=== PATIENT | male | born 1950 | race Caucasian/White ===

== ENCOUNTER → 2016-03-23 | Outpatient (CLI) | payer MEDICARE, OTHER ==
[2016-03-23 09:09] LABS: MEAN CORPUSCULAR HGB CONC 34.9 g/dL (31.0-37.0); MEAN PLATELET VOLUME 11.1 FL (6.0-9.5); PLATELET COUNT 153 10^3uL (150-450); WHITE BLOOD COUNT 6.38 10^3uL (4.0-11.0)
[2016-03-23 09:18] LABS: MEAN CORPUSCULAR HEMOGLOBIN 34.1 PG (26.0-34.0); MEAN CORPUSCULAR VOLUME 98 FL (80-100)
[2016-03-23 09:42] LABS: ALBUMIN 4.8 g/dL (3.4-5.0); ALKALINE PHOSPHATASE 70 U/L (38-126); ANION GAP 18.9 MEQ/L (3-15); BUN/CREATININE RATIO 20 (10-20); CALCULATED IONIZED CALCIUM 3.9 mg/dL (3.8-4.6); TOTAL PROTEIN 8.8 g/dL (6.4-8.5)
[2016-03-23 09:46] LABS: BILIRUBIN,URINE Negative (Negative); CLARITY,URINE Clear; COLOR,URINE Yellow; GLUCOSE, URINE (UA) Negative (Negative); LEUKOCYTE ESTERASE ,URINE Negative (Negative); UROBILINOGEN,URINE 0.2 mg/dL (0.2-1.0)
--- NOTE | 2016-03-23 09:54 | Diagnostic Imaging Report ---
EXAMINATION: CHEST (PA AND LATERAL) CLINICAL INDICATION: 65-year-old male, dyspnea. COMPARISON: March 17, 2015. FINDINGS: Stable overall appearance of the cardiomediastinal silhouette. There is no identified pneumothorax. There is no pleural effusion. There is no identified focal airspace consolidation. Multilevel flowing osteophytes without pronounced disc height loss of the thoracic spine likely relates to diffuse idiopathic skeletal hyperostosis. IMPRESSION: 1. No acute cardiopulmonary abnormality. Dictated by: Dictated on workstation # [id number]
[2016-03-23 10:18] LABS: BAND NEUTROPHILS % 1 % (0-6); EOSINOPHILS % 5 % (0-4); LYMPHOCYTES # 2.9 #; MONOCYTES # 0.6 #; MONOCYTES % 10 % (3-11); RBC MORPH NORMAL (NORMAL); SEGMENTED NEUTROPHILS % 37 % (51-67); TOTAL CELLS COUNTED 100
== END ==
LOC: LAB 08:52
PROVIDERS: ATTEND Family Medicine
DX: I49.8 Other specified cardiac arrhythmias (principal); R06.00 Dyspnea, unspecified; R79.89 Other specified abnormal findings of blood chemistry; E78.2 Mixed hyperlipidemia; D50.8 Other iron deficiency anemias; N39.0 Urinary tract infection, site not specified; E13.65 Other specified diabetes mellitus with hyperglycemia; E83.42 Hypomagnesemia; N40.1 Benign prostatic hyperplasia with lower urinary tract symptoms; E03.4 Atrophy of thyroid (acquired); M10.071 Idiopathic gout, right ankle and foot
CPT/HCPCS: 36415; 71020; 80053; 80061; 81003; 83036; 83735; 84153; 84436; 84443; 84550; 85025; 93005

== ENCOUNTER → 2016-06-22 | Outpatient (CLI) | payer MEDICARE, OTHER | LOC: LAB 13:44 | PROVIDERS: ATTEND Family Medicine | DX: E78.2 Mixed hyperlipidemia (principal); E03.4 Atrophy of thyroid (acquired) | CPT/HCPCS: 36415; 80061; 84436; 84443 ==